=== PATIENT | female | born 1990 | race African-American/Black ===

== ENCOUNTER 2017-05-08 08:43 | Emergency (ER) | payer MEDICAID ==
[~2017-05-08] VITALS: Ht 160 cm; Wt 73.0 kg
[2017-05-08] MEDS ORDERED: HYDROCODONE/ACETAMINOPHEN 5/325MG TABLET PO ONE (10:15)
[2017-05-08 10:18] VITALS: BP 120/77
== END 2017-05-09 09:27 | disposition home or self-care (01) ==
LOC: ER 08:43
DX: S60.022A Contusion of left index finger without damage to nail, initial encounter (principal); R56.9 Unspecified convulsions; X58.XXXA Exposure to other specified factors, initial encounter; Y93.89 Activity, other specified; Y92.89 Other specified places as the place of occurrence of the external cause
CPT/HCPCS: 73110; 73130; 81025; 99284

== ENCOUNTER 2018-02-01 21:26 | Emergency (ER) | payer MEDICAID, OTHER ==
[~2018-02-01] VITALS: Ht 162.6 cm; Wt 86.0 kg
[2018-02-01 22:12] VITALS: BP 121/62
== END 2018-02-02 01:19 | disposition left against medical advice (07) ==
LOC: ER 21:26
DX: R10.9 Unspecified abdominal pain (principal); Z53.21 Procedure and treatment not carried out due to patient leaving prior to being seen by health care provider

== ENCOUNTER 2018-02-03 07:42 | Emergency (ER) | payer MEDICAID, OTHER ==
[~2018-02-03] VITALS: Ht 162.6 cm; Wt 86.0 kg
[2018-02-03 08:37] LABS: CLARITY URINE CLEAR (CLEAR); COLOR URINE YELLOW (YELLOW); KETONES URINE NEGATIVE (NEGATIVE); LEUKOCYTE ESTERASE URINE NEGATIVE (NEGATIVE); NITRITE URINE NEGATIVE (NEGATIVE); OCCULT BLOOD URINE NEGATIVE (NEGATIVE); PH URINE 7.5 (4.5-8.0); PROTEIN URINE NEGATIVE (NEGATIVE); SPECIFIC GRAVITY URINE 1.007 (1.005-1.030); UROBILINOGEN URINE 0.2 E.U./dL (0.2-1.0)
[2018-02-03 13:17] VITALS: BP 120/70
== END 2018-02-03 13:01 | disposition home or self-care (01) ==
LOC: ER 08:19
DX: R10.31 Right lower quadrant pain (principal); R51 Headache; N89.8 Other specified noninflammatory disorders of vagina
CPT/HCPCS: 81003; 81025; 99283